=== PATIENT | male | born 1960 | race Caucasian/White ===

== ENCOUNTER → 2021-12-25 | Outpatient (CLI) | payer BC ==
[~2021-12-25] MED LIST: HYDR-3875 PO; NITR-65 PO; TMSL.4C PO
--- NOTE | 2021-12-25 14:20 | Diagnostic Imaging Report ---
INDICATION: Pain. FINDINGS: Bowel gas pattern is unremarkable. Faint calcification projects over the lower pole of the left kidney, likely a tiny stone. No apparent ureteral calculus. There are phleboliths in the pelvis, chronic. IMPRESSION: Likely left renal lower pole calculus. No bowel obstruction. No acute abnormality. Dictated by: Dictated on workstation # [id number]
== END ==
LOC: RAD FS 11:27
PROVIDERS: ATTEND Urology
DX: N20.0 Calculus of kidney (principal)
CPT/HCPCS: 74018